=== PATIENT | male | born 1965 | race Caucasian/White ===

== ENCOUNTER 2019-08-31 09:02 | Emergency (ER) | payer BC ==
[2019-08-31] MEDS ORDERED: ACETAMINOPHEN 1,000 MG/100 ML BTL IVPB ONE (09:19)
[2019-08-31] MEDS ORDERED: 0.9 % SODIUM CHLORIDE 1,000 ML BAG IV ONE (09:19)
--- NOTE | 2019-08-31 09:24 | Emergency Department Record ---
History of Present Illness - General Chief complaint: Flank Pain Stated complaint: FLANK PAIN Time Seen by Provider: 08/31/19 09:09 Source: Patient Mode of Arrival: Ambulatory Limitations: Other - History of Present Illness Initial comments: The patient is here due to R flank and lower back pain for 5 days. The pain is described as a constant aching pain that becomes much worse with any movement, bending, or twisting. There is no L sided pain, any abdominal pain, fever, chills, dysuria, or hematuria. The patient has no hx of similar issues and denies any injury or trauma. He also denies any radiation of the pain down the legs and no leg weakness, numbness, or any bowel or bladder issues. MD Complaint: Other Onset/Timin -: Days(s) Location: Right flank Severity scale (1-10): 9 Quality: Aching, Dull Consistency: Constant Reports: Denies other symptoms - Related Data Previous Rx's Medication Instructions Recorded Cyclobenzaprine HCl [Flexeril] 10 mg PO TID PRN #20 tablet 08/31/19 Naproxen [Naprosyn] 500 mg PO BID #14 tablet. 08/31/19 Allergies Allergy/AdvReac Type Severity Reaction Status Date / Time No Known Allergies Allergy none Verified 08/31/19 09:17 Travel Screening - Travel/Exposure Within Last 30 Days Have you traveled within the last 30 days?: No - Travel/Exposure Within Last Year Have you traveled outside the [place] in the last year?: No - Additonal Travel Details Have you been exposed to anyone with a communicable illness?: No - Travel Symptoms Symptom Screening: None Review of Systems Constitutional: Denies: Chills, Fever Eyes: Denies: Eye discharge ENT: Denies: Congestion Respiratory: Denies: Cough, Dyspnea Cardiovascular: Denies: Arrhythmia Endocrine: Denies: Fatigue Gastrointestinal: Denies: Abdominal pain, Nausea Genitourinary: Denies: Dysuria Musculoskeletal: Denies: Arthralgia Skin: Denies: Bruising Past Medical History - SOCIAL HISTORY Smoking Status: Light tobacco smoker (<10/day) Alcohol Use: Occasional Drug Use: Rare Drug Use Detail:: Marijuana - RESPIRATORY Hx Respiratory Disorders: No - CARDIOVASCULAR Hx Cardio Disorders: Yes Hx Abnormal EKG: Yes Hx Hypertension: Yes Hx Irregular Heartbeat: Yes - NEURO Hx Neuro Disorders: Yes Hx Headaches: Yes - GI Hx GI Disorders: Yes Hx Reflux: Yes Comment:: heartburn every day - Hx Genitourinary Disorders: No - ENDOCRINE Hx Endocrine Disorders: No - MUSCULOSKELETAL Hx Musculoskeletal Disorders: Yes - PSYCH Hx Psych Problems: Yes Hx Anxiety: Yes Hx Depression: Yes - HEMATOLOGY/ONCOLOGY Hx Hematology/Oncology Disorders: No Family Medical History Any Significant Family History?: No Hx Depression: Mother Physical Exam - General General Appearance: Alert, Oriented x3, Cooperative, No acute distress - Head Head exam: Atraumatic, Normocephalic - Eye Eye exam: Normal appearance - Neck Neck exam: Normal inspection, Full ROM. negative: Tenderness - Respiratory Respiratory exam: Normal lung sounds bilaterally. negative: Respiratory distress - Cardiovascular Cardiovascular Exam: Regular rate, Normal rhythm, Normal heart sounds - GI/Abdominal GI/Abdominal exam: Soft, Normal bowel sounds. negative: Guarding, Organomegaly, Rebound, Rigid, Tenderness - Extremities Extremities exam: Normal inspection, Full ROM, Normal capillary refill. ne gative: Calf tenderness, Pedal edema, Tenderness - Back Back exam: Reports: Normal inspection, Paraspinal tenderness (The pain is 100% reproducible with palpation of the R lower lumbar paraspinal area. ). Denies: CVA tenderness (R), CVA tenderness (L), Vertebral tenderness Image of Body Front/Back: 1 - Area of pain and reprodubible tenderness. - Neurological Neurological exam: Alert, Normal gait, Oriented X3. negative: Abnormal gait, Altered, Motor sensory deficit - Psychiatric Psychiatric exam: negative: Anxious Course Vital Signs 08/31/19 09:09 Temperature 99.1 F Pulse Rate 64 Respiratory 20 Rate Blood Pressure 157/101 Pulse Ox 96 - Reevaluation(s) Reevaluation #1: The patient is doing a lot better at this time. His pain is much improved and he is ready for home. I did explain the neg test results with the patient and the need for F/U with his PCP. 08/31/19 10:59 Medical Decision Making - Data Complexity MDM Data: Labs Ordered and/or Reviewed, X-Ray Ordered and/or Reviewed - Lab Data Result diagrams: 10/16/19 09:15 08/31/19 09:15 - Radiology Data Radiology results: Report reviewed (CT: Neg for any acute changes.) Disposition Disposition: Discharge Clinical Impression: Acute flank pain Disposition: Home, Self-Care Condition: (2) Stable Instructions: Flank Pain (ED) Additional Instructions: Please rest and use the Naprosyn and Flexeril as directed and take 2 days off work. Please see your family doctor for recheck next week. Return to the ER for any worsening symptoms. Prescriptions: Cyclobenzaprine HCl [Flexeril] 10 mg PO TID PRN #20 tablet PRN Reason: Pain Naproxen [Naprosyn] 500 mg PO BID #14 tablet.dr Forms: Patient Portal Access Time of Disposition: 11:02 Quality - Quality Measures Quality Measures: N/A - Blood Pressure Screening View Details: Yes Does Patient Have Any of the Following: Active Dx of HTN Blood Pressure Classification: Hypertensive Reading Systolic Measurement: 157 Diastolic Measurement: 101 Screening for High Blood Pressure: Patient Exclusion, Hx of HTN [G9744]
[2019-08-31 09:30] LABS: ABSOLUTE NEUTROPHIL COUNT 6.28; BASO % 1.3 % (0-6); EOS % 3.9 % (0-6); HEMATOCRIT 47.3 % (42.0-52.0); LYMPH % 16.1 % (16-45); MEAN CELL VOLUME 95.7 fl (81-97); MEAN CORPUSCULAR HEMOGLOBIN 32.4 pg (27-33); MEAN CORPUSCULAR HGB CONC 33.8 g/dl (32-36); MEAN PLATELET VOLUME 8.9 fl (7.4-10.4); MONO % 8.7 % (0-9); PLATELET COUNT 292 K/uL (130-400); RED BLOOD COUNT 4.94 M/uL (4.40-5.70); RED CELL DISTRIBUTION WIDTH 13.1 % (11.5-14.5)
[2019-08-31 09:42] LABS: BLOOD UREA NITROGEN 21 mg/dL (6-20); CREATININE 0.8 mg/dL (0.7-1.2); EST GLOMERULAR FILTRATION RATE > 60 mL/min
[2019-08-31 09:43] LABS: TOTAL PROTEIN 7.6 g/dL (6.6-8.7)
[2019-08-31 09:45] LABS: GLUCOSE,RANDOM 124 mg/dL (74-109)
[2019-08-31 09:47] LABS: ALBUMIN 4.7 g/dL (4.0-5.0); ALT/SGPT 20 U/L (<41); AST/SGOT 26 U/L (10.0-50.0)
[2019-08-31 09:48] LABS: ALKALINE PHOSPHATASE 78 U/L (40-129); BILIRUBIN,DIRECT < 0.2 mg/dL (0-0.3)
[2019-08-31 09:50] LABS: URINE APPEARANCE CLEAR; URINE BILIRUBIN NEGATIVE (NEGATIVE); URINE BLOOD NEGATIVE (NEGATIVE); URINE COLOR YELLOW; URINE GLUCOSE (UA) NEGATIVE (NEGATIVE); URINE KETONE NEGATIVE (NEGATIVE); URINE LEUKOCYTE ESTERASE NEGATIVE (NEGATIVE); URINE NITRITE NEGATIVE (NEGATIVE); URINE PROTEIN NEGATIVE (NEGATIVE); URINE UROBILINOGEN 0.2 E.U./dL (0.20 - 1.00)
[2019-08-31] MEDS ORDERED: KETOROLAC 30 MG/ML VIAL IVP ONE (10:14)
--- NOTE | 2019-08-31 10:36 | CT SCAN REPORT ---
EXAMINATION: CT Abdomen and Pelvis without IV Contrast EXAM DATE: 08/31/2019 10:06 AM TECHNIQUE: Standard protocol CT imaging of the abdomen and pelvis was performed without intravenous c ontrast. INDICATION: R flank pain COMPARISON: None ENCOUNTER: Not applicable CT ABDOMEN AND PELVIS FINDINGS: Lung Bases: Included extent of the lung bases are clear. Hepatobiliary: The liver is smooth in contour. No focal hepatic lesions. No calcified gallstones. No intrahepatic or extrahepatic biliary ductal dilation. Pancreas: There are a few punctate calcifications within the tail of the pancreas. Spleen: The spleen is not enlarged. Adrenals: The adrenal glands are normal. Gastrointestinal: No abnormal small bowel dilation. The appendix is not definitely visualized, howeve r there are no right lower quadrant inflammatory changes. The large bowel is within normal limits. Reproductive Organs: Unremarkable Lymphatic System: There is no adenopathy within the abdomen or pelvis. Vasculature: There is lobular calcific plaquing of the aorta and common iliac arteries. No abdominal aortic aneurysm. Peritoneum: No free fluid, free air, or inflammation Assessment of the solid organs, soft tissues, and vascular structures is overall limited on noncontra st imaging, IMPRESSION: 1. No renal calculi, hydronephrosis or other signs of obstructive uropathy. 2. The appendix is not definitely visualized, however there are no inflammatory changes in the right lower quadrant of the abdomen. Dictated by: Rgoelio Hurst on 08/31/2019 10:25 AM. .
== END 2019-08-31 11:14 | disposition home or self-care (01) ==
LOC: ER 09:02
DX: R10.31 Right lower quadrant pain (principal); M54.5 Low back pain; I10 Essential (primary) hypertension; F17.210 Nicotine dependence, cigarettes, uncomplicated
CPT/HCPCS: 99284 ×2; 96365; 96375; 85025; 80076; 80048; 81003; 74176; J1885; J7030

== ENCOUNTER 2019-09-02 07:32 | Emergency (ER) | payer BC ==
[2019-09-02] MEDS ORDERED: KETOROLAC 30 MG/ML VIAL IM ONE (07:52)
--- NOTE | 2019-09-02 07:58 | Emergency Department Record ---
History of Present Illness - General Chief Complaint: Back Pain/Injury Stated Complaint: BACK PAIN Time Seen by Provider: 09/02/19 07:35 Source: Patient Mode of Arrival: Ambulatory Limitations: No limitations - History of Present Illness Initial Comments: The patient is here due to R lower back pain for a week. The patient denies any injury or trauma but states the pain is much worse with any lifting, bending, or twisting. The pain does not go down the legs and there is no leg weakness, numbness, or tingling. The patient was in this ED 2 days ago for the same issues and had a neg workup including lab work, a UA, and CT which was normal. 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 MD Complaint: Back pain Onset/Timin -: Days(s) Radiation: None Severity: Severe Severity scale (1-10): 10 Quality: Sharp Consistency: Constant Improves With: None Worsens With: Movement Context: Unknown Treatments Prior to Arrival: Prescription analgesics - Related Data Previous Rx's Medication Instructions Recorded Cyclobenzaprine HCl [Flexeril] 10 mg PO TID PRN #20 tablet 08/31/19 Naproxen [Naprosyn] 500 mg PO BID #14 tablet. 08/31/19 Hydrocodone/Acetaminophen [[place] 1 each PO QID #15 tablet 09/02/19 5-325 Tablet] Ibuprofen [Motrin] 800 mg PO TID PRN #20 tab 09/02/19 Allergies Allergy/AdvReac Type Severity Reaction Status Date / Time No Known Allergies Allergy none Verified 08/31/19 09:17 Travel Screening - Travel/Exposure Within Last 30 Days Have you traveled within the last 30 days?: No - Travel/Exposure Within Last Year Have you traveled outside the [place] in the last year?: No - Additonal Travel Details Have you been exposed to anyone with a communicable illness?: No - Travel Symptoms Symptom Screening: None Past Medical History - SOCIAL HISTORY Smoking Status: Light tobacco smoker (<10/day) Alcohol Use: Occasional Drug Use: None - RESPIRATORY Hx Respiratory Disorders: No - CARDIOVASCULAR Hx Cardio Disorders: Yes Hx Abnormal EKG: Yes Hx Hypertension: Yes Hx Irregular Heartbeat: Yes - NEURO Hx Neuro Disorders: Yes Hx Headaches: Yes - GI Hx GI Disorders: Yes Hx Reflux: Yes Comment:: heartburn every day - Hx Genitourinary Disorders: No - ENDOCRINE Hx Endocrine Disorders: No - MUSCULOSKELETAL Hx Musculoskeletal Disorders: Yes - PSYCH Hx Psych Problems: Yes Hx Anxiety: Yes Hx Depression: Yes - HEMATOLOGY/ONCOLOGY Hx Hematology/Oncology Disorders: No Family Medical History Any Significant Family History?: Yes Hx Depression: Mother Physical Exam - General General Appearance: Alert, Oriented x3, Cooperative, No acute distress - Head Head exam: Atraumatic, Normocephalic - Eye Eye exam: Normal appearance, PERRL - Neck Neck exam: Normal inspection, Full ROM. negative: Tenderness - Respiratory Respiratory exam: Normal lung sounds bilaterally. negative: Respiratory distress - Cardiovascular Cardiovascular Exam: Regular rate, Normal rhythm, Normal heart sounds - GI/Abdominal GI/Abdominal exam: Soft, Normal bowel sounds. negative: Tenderness - Extremities Extremities exam: Normal inspection, Full ROM, Normal capillary refill, Other (Neg SLR bilaterally.). negative: Tenderness - Back Back exam: Reports: Normal inspection, Paraspinal tenderness (The pain is 100% reproducible to palpation over the R lower lumbar paraspinal area.). Denies: Vertebral tenderness Image of Body Front/Back: 1 - Area of pain and reproducible tenderness. - Neurological Neurological exam: Alert, Normal gait, Oriented X3, Reflexes normal. negative: Abnormal gait, Altered, Motor sensory deficit Course Vital Signs 09/02/19 07:40 Temperature 98.0 F Pulse Rate 61 Respiratory 18 Rate Blood Pressure 165/108 Pulse Ox 98 - Reevaluation(s) Reevaluation #1: I did have a long discussion with the patient regarding his pain. It clearly is musculoskeletal and very reproducible to palpation. It also is basically not present unless the patient is bending or twisting or rotating his body. We did get the patient an appointment with his PCP next week and did extend his off work note. 09/02/19 08:17 Reevaluation #2: I also did discuss the need to see his PCP next week to have his blood pressure medicines adjusted and the patient will comply. 09/02/19 09:04 Disposition Disposition: Discharge Clinical Impression: Lumbar paraspinal muscle spasm Disposition: Home, Self-Care Condition: (2) Stable Instructions: Low Back Strain (ED) Additional Instructions: Rest for 3 days and continue your medicines. Please see your doctor next week. Return to the ER for any worsening symptoms. Stop the Naprosyn and start the Motrin 800's. Take the [place] for pain if needed. Prescriptions: Ibuprofen [Motrin] 800 mg PO TID PRN #20 tab PRN Reason: Pain Hydrocodone/Acetaminophen [[place] 5-325 Tablet] 1 each PO QID #15 tablet Forms: Patient Portal Access Time of Disposition: 08:22 Quality - Quality Measures Quality Measures: N/A - Blood Pressure Screening View Details: Yes Does Patient Have Any of the Following: Active Dx of HTN Blood Pressure Classification: Hypertensive Reading Systolic Measurement: 164 Diastolic Measurement: 114 Screening for High Blood Pressure: Patient Exclusion, Hx of HTN [G9744]
[2019-09-02] MEDS ORDERED: HYDROCODONE/APAP 5/325MG TABLET PO ONE (08:16)
== END 2019-09-02 08:27 | disposition home or self-care (01) ==
LOC: ER 07:32
DX: M62.830 Muscle spasm of back (principal); M54.5 Low back pain; I10 Essential (primary) hypertension
CPT/HCPCS: 99284 ×2; 96372; J1885